=== PATIENT | male | born 1955 | race Two or more races ===

== ENCOUNTER → 2016-07-06 | Outpatient (CLI) | payer OTHER ==
[~2016-07-06] MED LIST: ALBU18HF INH; ALBU6.7H INH; AMLO10TA2 PO; ASPI-496 PO; ASPI-515 PO; ATOR40TA PO; ATOR40TA78 PO; CEFD300C2 PO; CLAR500T4; DILT120T4 PO; DOXY-168 PO; DOXY100T PO; ENAL20TA68 PO; EPIN1AMP INJ; FLUT15.88 NAS; GADOBUTROL 10 MMOL/10 ML PFS ONE; GUAI-103 PO; IMMU10VI; LABE200T3 PO; LISI5TAB PO; METF500T27 PO; METO25TA91; MOME13HF INH; MOME17SP NAS; MONT10TA6 PO; MONT10TA9 PO; PANT40TA3 PO; PANT40TA5 PO; PRED10TA PO; RANO500T2 PO; RIVA20TA PO; ROSU20TA PO; SOTA80TA18 PO; SPIR1TAB PO
== END | disposition home or self-care (01) ==
LOC: RAD 07:04
PROVIDERS: ATTEND Family Medicine
DX: G44.89 Other headache syndrome (principal)
CPT/HCPCS: 70553; A9585

== ENCOUNTER → 2016-07-07 | Outpatient (CLI) | payer OTHER ==
[~2016-07-07] MED LIST changes: -GADOBUTROL 10 MMOL/10 ML PFS ONE
== END | disposition home or self-care (01) ==
LOC: CVU 07:56
PROVIDERS: ATTEND Family Medicine
DX: I07.1 Rheumatic tricuspid insufficiency (principal); I37.1 Nonrheumatic pulmonary valve insufficiency; I34.0 Nonrheumatic mitral (valve) insufficiency; I10 Essential (primary) hypertension; E11.9 Type 2 diabetes mellitus without complications
CPT/HCPCS: 93225; 93226; 93306

== ENCOUNTER 2016-12-19 01:33 | Inpatient (IN) | payer OTHER ==
[~2016-12-19] VITALS: Ht 185.4 cm; Wt 116.3 kg
[~2016-12-19 01:33] MED LIST changes: -CEFD300C2 PO; +CEFD300C37 PO; -DOXY-168 PO; +DOXY100T10 PO
[2016-12-19] MEDS ORDERED: ALBUTEROL/IPRATROPIUM 2.5MG/0.5MG, 3 ML ONE (02:18)
[2016-12-19] MEDS ORDERED: SODIUM CHLORIDE FLUSH 10ML SYR IVF ONE (02:30)
[2016-12-19] MEDS ORDERED: ALBUTEROL/IPRATROPIUM 2.5MG/0.5MG, 3 ML NPPB ONE (02:30)
[2016-12-19 03:03] LABS: ASPARTATE AMINO TRANSFERASE 14 U/L (15-37); BLOOD UREA NITROGEN 20 mg/dL (7-18)
[2016-12-19 03:10] LABS: IS PT STATUS REG ER OR PRE ER? YES
[2016-12-19 03:16] LABS: HEMATOCRIT 43.5 % (39.2-51.8); HEMOGLOBIN 14.7 g/dL (13.7-18.0); WHITE BLOOD COUNT 7.1 x10^3/uL (3.4-10)
[2016-12-19] MEDS ORDERED: SODIUM CHLORIDE 0.9% 1,000ML IVBOLUS ONE (05:00)
[2016-12-19] MEDS ORDERED: OMNIPAQUE 350 MG/ML, 100ML BOTTLE ONE (05:21)
[2016-12-19] MEDS ORDERED: ALBUTEROL SULFATE 2.5 MG/3 ML NPPB ONE (05:30)
[2016-12-19] MEDS ORDERED: ALBUTEROL SULFATE 2.5 MG/3 ML ONE ×3 (06:02→14:08)
[2016-12-19] MEDS ORDERED: SITA100T PO (06:41)
[2016-12-19] MEDS ORDERED: hydrALAzine 20 MG/ML, 1ML IVPush PRN (09:00)
[2016-12-19] MEDS: DILTIAZEM 120 MG TABLET PO SCH ×2 (09:00→21:45)
[2016-12-19] MEDS: MONTELUKAST 10 MG TABLET PO SCH (09:00)
[2016-12-19] MEDS: methylPREDNISolone SOD SUCC 40 MG/ML IV SCH ×3 (09:00→20:55)
[2016-12-19] MEDS: AZITHROMYCIN 500 MG in SODIUM CHLORIDE 0.9% 250 ML IV SCH (09:00)
[2016-12-19] MEDS ORDERED: morphine SULFATE 10 MG/ML, 1ML IVPush PRN (09:00)
[2016-12-19] MEDS ORDERED: ACETAMINOPHEN 325 MG TABLET PO PRN (09:00)
[2016-12-19] MEDS ORDERED: ONDANSETRON 2MG/ML, 2ML IVPush PRN (09:00)
[2016-12-19] MEDS: PANTOPROZOLE 40MG TABLET PO SCH (09:00)
[2016-12-19] MEDS ORDERED: ENOXAPARIN 40 MG/0.4 ML SQ SCH (09:00)
[2016-12-19] MEDS ORDERED: TEMAZEPAM 15 MG CAPSULE PO PRN (09:00)
[2016-12-19] MEDS: SOTALOL 80MG TABLET PO SCH ×2 (09:00→21:44)
[2016-12-19] MEDS ORDERED: PANTOPROZOLE 40MG TABLET PO SCH (09:00)
[2016-12-19] MEDS: SPIRONOLACTONE 25 MG TABLET PO SCH (09:00)
[2016-12-19] MEDS: RIVAROXABAN 20 MG TABLET PO SCH (09:00)
[2016-12-19] MEDS: INSULIN DETEMIR 100 UNITS/ML, PEN SQ-INSULIN SCH (09:00)
[2016-12-19] MEDS ORDERED: SPIRONOLACT/HCTZ 25/25MG TABLET PO SCH (09:00)
[2016-12-19] MEDS: LISINOPRIL 5 MG TABLET PO SCH (09:00)
[2016-12-19] MEDS: HYDROCHLOROTHIAZIDE 25 MG TABLET PO SCH (09:00)
[2016-12-19] MEDS: RANOLAZINE 500 MG TAB.ER.12H PO SCH ×2 (09:00→21:45)
[2016-12-19] MEDS ORDERED: GUAIFENESIN/DM 200-20MG, 10ML UDC PO PRN (09:00)
[2016-12-19] MEDS ORDERED: ENOXAPARIN 40 MG/0.4 ML ONE (10:33)
[2016-12-19] MEDS ORDERED: methylPREDNISolone SOD SUCC 40 MG/ML ONE (10:33)
[2016-12-19] MEDS: INSULIN ASPART 100 UNITS/ML, PEN SQ-INSULIN SCH ×3 (11:00→20:54)
[2016-12-19] MEDS ORDERED: INSULIN REGULAR 100 UNITS/ML, 3ML VIAL ONE (12:09)
[2016-12-19] MEDS: ALBUTEROL SULFATE 2.5 MG/3 ML NPPB SCH ×2 (14:10→20:00)
[2016-12-19 15:24] VITALS: BP 122/65
[2016-12-19] MEDS: HYDROcodone/APAP 5/325 TABLET PO PRN ×2 (15:43→20:54)
[2016-12-19 18:59] VITALS: BP 115/63
[2016-12-19] MEDS: ATORVASTATIN 40 MG TABLET PO SCH (20:54)
[2016-12-19] MEDS: ASPIRIN 81 MG TABLET EC PO SCH (20:54)
[2016-12-20 00:51] VITALS: BP 123/63
[2016-12-20] MEDS: methylPREDNISolone SOD SUCC 40 MG/ML IV SCH ×4 (02:21→22:32)
[2016-12-20] MEDS: HYDROcodone/APAP 5/325 TABLET PO PRN ×3 (06:14→12:51)
[2016-12-20 06:19] LABS: BLOOD UREA NITROGEN 23 mg/dL (7-18)
[2016-12-20] MEDS: ALBUTEROL SULFATE 2.5 MG/3 ML NPPB SCH ×4 (06:30→19:43)
[2016-12-20 08:32] VITALS: BP 105/62
[2016-12-20] MEDS: SPIRONOLACTONE 25 MG TABLET PO SCH (08:37)
[2016-12-20] MEDS: LISINOPRIL 5 MG TABLET PO SCH (08:37)
[2016-12-20] MEDS: DILTIAZEM 120 MG TABLET PO SCH ×2 (08:37→22:29)
[2016-12-20] MEDS: SOTALOL 80MG TABLET PO SCH ×2 (08:37→22:29)
[2016-12-20] MEDS: RANOLAZINE 500 MG TAB.ER.12H PO SCH ×2 (08:38→22:29)
[2016-12-20] MEDS: PANTOPROZOLE 40MG TABLET PO SCH (08:38)
[2016-12-20] MEDS: MONTELUKAST 10 MG TABLET PO SCH (08:38)
[2016-12-20] MEDS: RIVAROXABAN 20 MG TABLET PO SCH (08:38)
[2016-12-20] MEDS: INSULIN ASPART 100 UNITS/ML, PEN SQ-INSULIN SCH ×4 (08:39→22:03)
[2016-12-20] MEDS: HYDROCHLOROTHIAZIDE 25 MG TABLET PO SCH (09:58)
[2016-12-20] MEDS: INSULIN DETEMIR 100 UNITS/ML, PEN SQ-INSULIN SCH (09:59)
[2016-12-20] MEDS: AZITHROMYCIN 500 MG in SODIUM CHLORIDE 0.9% 250 ML IV SCH (09:59)
[2016-12-20 15:04] VITALS: BP 113/77
[2016-12-20 19:14] VITALS: BP 112/63
[2016-12-20 21:57] VITALS: BP 119/70
[2016-12-20] MEDS: ATORVASTATIN 40 MG TABLET PO SCH (22:29)
[2016-12-20] MEDS: ASPIRIN 81 MG TABLET EC PO SCH (22:29)
[2016-12-21 02:00] VITALS: BP 99/54
[2016-12-21] MEDS: HYDROcodone/APAP 5/325 TABLET PO PRN (03:54)
[2016-12-21] MEDS: methylPREDNISolone SOD SUCC 40 MG/ML IV SCH ×2 (04:56→11:00)
[2016-12-21] MEDS: ALBUTEROL SULFATE 2.5 MG/3 ML NPPB SCH ×2 (07:00→11:00)
[2016-12-21 08:44] VITALS: BP 133/75
[2016-12-21] MEDS: INSULIN ASPART 100 UNITS/ML, PEN SQ-INSULIN SCH ×2 (08:46→12:17)
[2016-12-21] MEDS: RIVAROXABAN 20 MG TABLET PO SCH (08:46)
[2016-12-21] MEDS: MONTELUKAST 10 MG TABLET PO SCH (08:46)
[2016-12-21] MEDS: INSULIN DETEMIR 100 UNITS/ML, PEN SQ-INSULIN SCH (08:46)
[2016-12-21] MEDS: PANTOPROZOLE 40MG TABLET PO SCH (08:46)
[2016-12-21] MEDS: RANOLAZINE 500 MG TAB.ER.12H PO SCH (08:46)
[2016-12-21] MEDS: LISINOPRIL 5 MG TABLET PO SCH (08:47)
[2016-12-21] MEDS: DILTIAZEM 120 MG TABLET PO SCH (08:47)
[2016-12-21] MEDS: SPIRONOLACTONE 25 MG TABLET PO SCH (08:47)
[2016-12-21] MEDS ORDERED: PRED10TA PO (09:35)
[2016-12-21] MEDS ORDERED: ALBU18HF INH (09:35)
[2016-12-21] MEDS ORDERED: ALBU2.5V NPPB (09:35)
[2016-12-21] MEDS ORDERED: MOME13HF INH ×2 (09:37→10:50)
[2016-12-21] MEDS: AZITHROMYCIN 500 MG in SODIUM CHLORIDE 0.9% 250 ML IV SCH (09:41)
[2016-12-21] MEDS: HYDROCHLOROTHIAZIDE 25 MG TABLET PO SCH (09:44)
[2016-12-21] MEDS: SOTALOL 80MG TABLET PO SCH (09:47)
[2016-12-21] MEDS ORDERED: AZIT500T5 PO (10:48)
[2016-12-21] MEDS ORDERED: TRAM50TA2 PO (10:50)
[2016-12-21] MEDS ORDERED: ALBUTEROL SULFATE 2.5 MG/3 ML NPPB PRN (15:00)
== END 2016-12-21 13:35 | disposition home or self-care (01) | DRG 202 ==
LOC: ED 03:12 → EDIP 06:14 → 5SO 15:14 → DCLOUNGE 12-21 13:18
PROVIDERS: ADMIT Internal Medicine; ATTEND Internal Medicine
DX: J45.41 Moderate persistent asthma with (acute) exacerbation (principal); D68.69 Other thrombophilia; I50.32 Chronic diastolic (congestive) heart failure; I11.0 Hypertensive heart disease with heart failure; E11.9 Type 2 diabetes mellitus without complications; E78.5 Hyperlipidemia, unspecified; I25.10 Atherosclerotic heart disease of native coronary artery without angina pectoris; I25.2 Old myocardial infarction; I48.0 Paroxysmal atrial fibrillation; J20.8 Acute bronchitis due to other specified organisms; K21.9 Gastro-esophageal reflux disease without esophagitis; Z79.01 Long term (current) use of anticoagulants; Z80.6 Family history of leukemia; Z80.7 Family history of other malignant neoplasms of lymphoid, hematopoietic and related tissues; Z82.49 Family history of ischemic heart disease and other diseases of the circulatory system; Z95.5 Presence of coronary angioplasty implant and graft
CPT/HCPCS: 36415; 71010; 71275; 80048; 80053; 82962; 83036; 83880; 84443; 84484; 85025; 93005; 94640; 96360; 96372; J0456; J1650; J1815; J2405; J7613; J7620; Q9967; J2920; J7030; J7050; J7512

== ENCOUNTER 2017-09-13 06:07 | Inpatient (IN) | payer OTHER ==
[~2017-09-13] VITALS: Ht 185.4 cm; Wt 109.3 kg
[~2017-09-13 06:07] MED LIST changes: +ALBU2.5V NPPB; +APIX5TAB PO; +AZIT500T5 PO; +LEVO500T8 PO; +LOSA50TA6 PO; +METO25TA35 PO; +SITA100T PO; +TRAM50TA2 PO
[2017-09-13] MEDS ORDERED: NITROGLYCERIN SINGLE TAB 0.4 MG SL PRN (07:00)
[2017-09-13] MEDS ORDERED: NITROGLYCERIN SINGLE TAB 0.4 MG SL ONE (07:00)
[2017-09-13] MEDS ORDERED: ASPIRIN 81 MG TABLET CHEW ONE (07:00)
[2017-09-13] MEDS ORDERED: SODIUM CHLORIDE FLUSH 10ML SYR IVF ONE (07:00)
[2017-09-13] MEDS ORDERED: ASPIRIN 81 MG TABLET CHEW PO ONE (07:00)
[2017-09-13 07:03] LABS: MEAN CORPUSCULAR HEMOGLOBIN 23.3 pg (27.5-34.5); MEAN CORPUSCULAR HGB CONC 32.5 g/dL (33.2-36.2); MEAN CORPUSCULAR VOLUME 71.8 fL (81-97); PLATELET COUNT 346 x10^3/uL (130-400); RED BLOOD COUNT 5.66 x10^6/uL (4.38-5.82)
[2017-09-13 07:04] LABS: BASOPHILS # (AUTO) 0.01 x10^3/uL (0-0.1); BASOPHILS % (AUTO) 0 % (0-1); EOSINOPHILS # (AUTO) 0.17 x10^3/uL (0-0.4); EOSINOPHILS % (AUTO) 2 % (1-7); LYMPHOCYTES # (AUTO) 0.63 x10^3/uL (1-3.4); LYMPHOCYTES % (AUTO) 8 % (22-44); MD NO; MEAN PLATELET VOLUME 7.3 fL (7.4-10.4); MONOCYTES # (AUTO) 0.67 x10^3/uL (0.2-0.8); MONOCYTES % (AUTO) 8 % (2-9); NEUTROPHILS # (AUTO) 6.82 x10^3/uL (1.8-6.8); NEUTROPHILS % (AUTO) 82 % (42-75)
[2017-09-13 07:14] LABS: ANION GAP 8 mmol/L (5-15); CALCIUM 8.4 mg/dL (8.5-10.1); CHLORIDE 106 mmol/L (98-107); CREATININE 1.11 mg/dL (0.7-1.3)
[2017-09-13 07:15] LABS: ALBUMIN 3.4 g/dL (3.4-5.0)
[2017-09-13 07:18] LABS: TROPONIN I < 0.015 ng/mL (0.000-0.045)
[2017-09-13] MEDS ORDERED: NITROGLYCERIN OINT 2%, 1GM TP ONE ×2 (08:23→08:30)
[2017-09-13 09:25] VITALS: BP 136/80
[2017-09-13] MEDS ORDERED: ONDANSETRON ODT 4 MG PO PRN (10:00)
[2017-09-13] MEDS ORDERED: ENALAPRILAT 1.25 MG/ML, 2ML IVPush PRN (10:00)
[2017-09-13] MEDS ORDERED: morphine SULFATE 10 MG/ML, 1ML IVPush PRN (10:00)
[2017-09-13] MEDS ORDERED: NITROGLYCERIN 0.4 MG BOTTLE (25 TABS) SL PRN ×2 (10:00)
[2017-09-13] MEDS ORDERED: ONDANSETRON 2MG/ML, 2ML IVPush PRN (10:00)
[2017-09-13] MEDS ORDERED: NITROGLYCERIN 0.4 MG/SPRAY SL PRN (10:00)
[2017-09-13] MEDS ORDERED: DOCUSATE 100 MG CAPSULE PO PRN (10:00)
[2017-09-13] MEDS ORDERED: BUDE10.2 INH (10:01)
[2017-09-13] MEDS ORDERED: ALBUTEROL SULFATE 2.5 MG/3 ML HHN PRN (10:30)
[2017-09-13 10:44] VITALS: BP 102/66
[2017-09-13] MEDS: INSULIN LISPRO 100 UNITS/ML, PEN SQ-INSULIN SCH ×3 (11:00→19:50)
[2017-09-13 13:13] LABS: TROPONIN I < 0.015 ng/mL (0.000-0.045)
[2017-09-13 14:00] VITALS: BP 108/64
[2017-09-13] MEDS ORDERED: ALBUTEROL SULFATE 2.5 MG/3 ML NPPB PRN (15:00)
[2017-09-13] MEDS ORDERED: OMNIPAQUE 350 MG/ML, 100ML BOTTLE ONE (15:31)
[2017-09-13 19:20] LABS: TROPONIN I < 0.015 ng/mL (0.000-0.045)
[2017-09-13] MEDS: ACETAMINOPHEN 325 MG TABLET PO PRN (19:47)
[2017-09-13] MEDS: APIXABAN 5 MG TABLET PO SCH (19:47)
[2017-09-13] MEDS: METOPROLOL TARTRATE 25 MG TABLET PO SCH (19:47)
[2017-09-13 19:56] VITALS: BP 108/69
[2017-09-13] MEDS ORDERED: MONTELUKAST 10 MG TABLET PO SCH (21:00)
[2017-09-14 01:46] VITALS: BP 115/66
[2017-09-14 05:13] LABS: CHLORIDE 106 mmol/L (98-107)
[2017-09-14 05:20] LABS: BASOPHILS # (AUTO) 0.04 x10^3/uL (0-0.1); BASOPHILS % (AUTO) 1 % (0-1); EOSINOPHILS # (AUTO) 0.31 x10^3/uL (0-0.4); EOSINOPHILS % (AUTO) 5 % (1-7); LYMPHOCYTES # (AUTO) 0.99 x10^3/uL (1-3.4); LYMPHOCYTES % (AUTO) 17 % (22-44); MD NO; MEAN CORPUSCULAR HEMOGLOBIN 23.7 pg (27.5-34.5); MEAN CORPUSCULAR VOLUME 71.9 fL (81-97); MEAN PLATELET VOLUME 6.9 fL (7.4-10.4); MONOCYTES % (AUTO) 14 % (2-9); NEUTROPHILS # (AUTO) 3.82 x10^3/uL (1.8-6.8); NEUTROPHILS % (AUTO) 64 % (42-75); PLATELET COUNT 322 x10^3/uL (130-400); RED BLOOD COUNT 5.47 x10^6/uL (4.38-5.82)
[2017-09-14 05:21] LABS: ALANINE AMINOTRANSFERASE 31 U/L (12-78); ALBUMIN 3.2 g/dL (3.4-5.0); ALKALINE PHOSPHATASE 85 U/L (45-117); ANION GAP 3 mmol/L (5-15); CALCIUM 8.1 mg/dL (8.5-10.1); CHOL/HDL RATIO 5.5; CHOLESTEROL, TOTAL 131 mg/dL (140-239); CREATININE 1.05 mg/dL (0.7-1.3); HDL CHOL % 18 % (26-37); HDL CHOLESTEROL (DIRECT) 24 mg/dL (40-60); LDL CHOLESTEROL,CALCULATED 75 mg/dL (54-169); LDL/HDL RATIO 3.1 (0.5-3.0); TOTAL PROTEIN 6.7 g/dL (6.4-8.2); TRIGLYCERIDES 161 mg/dL (50-200); VLDL CHOLESTEROL 32 mg/dL (0-25)
[2017-09-14 05:33] VITALS: BP 121/71
[2017-09-14] MEDS ORDERED: ASPIRIN 325 MG TABLET EC PO SCH (06:00)
[2017-09-14 06:30] VITALS: BP 113/69
[2017-09-14 06:42] LABS: OCCULT BLOOD NEGATIVE (NEGATIVE)
[2017-09-14] MEDS: INSULIN LISPRO 100 UNITS/ML, PEN SQ-INSULIN SCH ×3 (08:25→17:15)
[2017-09-14] MEDS: METOPROLOL TARTRATE 25 MG TABLET PO SCH (08:25)
[2017-09-14] MEDS: APIXABAN 5 MG TABLET PO SCH (08:25)
[2017-09-14] MEDS: ACETAMINOPHEN 325 MG TABLET PO PRN (08:26)
[2017-09-14] MEDS ORDERED: LOSARTAN 50MG TABLET PO SCH (09:00)
[2017-09-14] MEDS ORDERED: PANTOPROZOLE 40MG TABLET PO SCH ×2 (09:00→21:00)
[2017-09-14] MEDS ORDERED: SPIRONOLACT/HCTZ 25/25MG TABLET PO SCH (09:00)
[2017-09-14] MEDS ORDERED: MONTELUKAST 10 MG TABLET PO SCH (09:00)
[2017-09-14] MEDS ORDERED: AMINOPHYLLINE 25 MG/ML, 10ML ONE (09:18)
[2017-09-14 10:45] VITALS: BP 117/74
[2017-09-14] MEDS ORDERED: ASCORBIC ACID 500 MG TABLET PO SCH (13:00)
[2017-09-14] MEDS: FERROUS SULFATE 325 MG TABLET PO SCH ×2 (13:37→17:00)
[2017-09-14 14:16] VITALS: BP 116/73
[2017-09-14] MEDS ORDERED: NITR0.4T SL (15:30)
[2017-09-14] MEDS ORDERED: METH750T2 PO (15:30)
[2017-09-14] MEDS ORDERED: ACET325T14 PO (15:30)
[2017-09-14] MEDS ORDERED: METHOCARBAMOL 750 MG TABLET PO PRN (15:30)
[2017-09-14] MEDS ORDERED: ASPI-515 PO (15:30)
[2017-09-14] MEDS ORDERED: ASCO500T6 PO (15:30)
[2017-09-14] MEDS ORDERED: CALC200T24 PO (15:30)
[2017-09-14] MEDS ORDERED: CALCIUM CARBONATE 500 MG TAB.CHEW PO PRN (15:30)
[2017-09-14] MEDS ORDERED: FERR-51 PO (15:30)
[2017-09-14] MEDS ORDERED: PANT40TA3 PO (15:30)
[2017-09-14 19:23] LABS: HEMOGLOBIN A1C 7.6 % (4.2-6.3)
[2017-09-15] MEDS ORDERED: ASPIRIN 325 MG TABLET EC PO SCH (06:00)
== END 2017-09-14 18:18 | disposition home or self-care (01) | DRG 311 ==
LOC: ED 08:11 → EDIP 08:12 → ED 08:25 → 5SO 09:31
PROVIDERS: ADMIT Hospitalist; ATTEND Hospitalist
DX: I24.8 Other forms of acute ischemic heart disease (principal); D68.59 Other primary thrombophilia; I50.32 Chronic diastolic (congestive) heart failure; D80.3 Selective deficiency of immunoglobulin G [IgG] subclasses; E11.9 Type 2 diabetes mellitus without complications; E78.5 Hyperlipidemia, unspecified; I11.0 Hypertensive heart disease with heart failure; I25.10 Atherosclerotic heart disease of native coronary artery without angina pectoris; I25.2 Old myocardial infarction; I48.0 Paroxysmal atrial fibrillation; J45.909 Unspecified asthma, uncomplicated; K21.9 Gastro-esophageal reflux disease without esophagitis; Z79.01 Long term (current) use of anticoagulants; Z79.4 Long term (current) use of insulin; Z79.82 Long term (current) use of aspirin; Z80.6 Family history of leukemia; Z82.49 Family history of ischemic heart disease and other diseases of the circulatory system; Z95.5 Presence of coronary angioplasty implant and graft; Z88.8 Allergy status to other drugs, medicaments and biological substances
CPT/HCPCS: 36415; 71045; 71275; 78452; 80048; 80053; 80061; 82040; 82272; 82728; 82962; 83036; 83540; 83550; 84466; 84484; 85025; 93005; 93017; 99285; Q9967; A9502; C9898; J0280; J1815

== ENCOUNTER 2017-11-14 05:37 | Observation (INO) | payer OTHER ==
[~2017-11-14] VITALS: Ht 185.4 cm; Wt 107.3 kg
[~2017-11-14 05:37] MED LIST changes: +ACET325T14 PO; +ASCO500T6 PO; +BUDE10.2 INH; +CALC200T24 PO; +FERR-51 PO; -LABE200T3 PO; +LABE200T6 PO; +METH750T2 PO; +NITR0.4T SL
[2017-11-14 06:18] LABS: BASOPHILS # (AUTO) 0.03 x10^3/uL (0-0.1); BASOPHILS % (AUTO) 0 % (0-1); EOSINOPHILS # (AUTO) 0.16 x10^3/uL (0-0.4); EOSINOPHILS % (AUTO) 2 % (1-7); LYMPHOCYTES # (AUTO) 0.89 x10^3/uL (1-3.4); LYMPHOCYTES % (AUTO) 13 % (22-44); MD NO; MEAN CORPUSCULAR HEMOGLOBIN 25.6 pg (27.5-34.5); MEAN CORPUSCULAR HGB CONC 33.3 g/dL (33.2-36.2); MEAN CORPUSCULAR VOLUME 76.9 fL (81-97); MEAN PLATELET VOLUME 6.8 fL (7.4-10.4); MONOCYTES # (AUTO) 0.56 x10^3/uL (0.2-0.8); MONOCYTES % (AUTO) 8 % (2-9); NEUTROPHILS # (AUTO) 5.35 x10^3/uL (1.8-6.8); NEUTROPHILS % (AUTO) 77 % (42-75); PLATELET COUNT 327 x10^3/uL (130-400); RED BLOOD COUNT 5.44 x10^6/uL (4.38-5.82); RED CELL DISTRIBUTION WIDTH 19.7 % (9.4-14.8)
[2017-11-14 06:30] LABS: ALANINE AMINOTRANSFERASE 40 U/L (12-78); ALBUMIN 3.5 g/dL (3.4-5.0); ANION GAP 8 mmol/L (5-15); CALCIUM 8.7 mg/dL (8.5-10.1); CHLORIDE 109 mmol/L (98-107); CREATININE 1.03 mg/dL (0.7-1.3)
[2017-11-14 06:32] LABS: ALKALINE PHOSPHATASE 79 U/L (45-117); BILIRUBIN,TOTAL 0.5 mg/dL (0.2-1.0); TOTAL PROTEIN 6.8 g/dL (6.4-8.2)
[2017-11-14 06:34] LABS: SALICYLATE LEVEL < 1.7 mg/dL (2.8-20.0)
[2017-11-14 06:35] LABS: ACETAMINOPHEN < 2 mcg/mL (10-30)
[2017-11-14 08:53] LABS: AMPHETAMINE SCREEN, URINE Negative (Negative); BARBITURATE SCREEN, URINE Negative (Negative); BENZODIAZEPINE SCREEN, URINE Negative (Negative); CANNABINOID SCREEN, URINE Negative (Negative); COCAINE SCREEN, URINE Negative (Negative); METHADONE SCREEN, URINE Negative (Negative); OPIATE SCREEN, URINE Negative (Negative)
[2017-11-14 13:29] VITALS: BP 153/82
[2017-11-14 14:50] VITALS: BP 153/82
[2017-11-14] MEDS ORDERED: ACETAMINOPHEN 325 MG TABLET PO PRN ×2 (16:00)
[2017-11-14] MEDS ORDERED: CALCIUM CARBONATE 500 MG TAB.CHEW PO PRN (16:30)
[2017-11-14] MEDS ORDERED: ALBUTEROL SULFATE 2.5 MG/3 ML NPPB PRN (16:30)
[2017-11-14] MEDS ORDERED: FERROUS SULFATE 325 MG TABLET PO SCH (17:00)
[2017-11-14] MEDS ORDERED: METOPROLOL TARTRATE 25 MG TABLET PO SCH (21:00)
[2017-11-14] MEDS ORDERED: MONTELUKAST 10 MG TABLET PO SCH (21:00)
[2017-11-14] MEDS ORDERED: APIXABAN 5 MG TABLET PO SCH (21:00)
[2017-11-14] MEDS ORDERED: PANTOPROZOLE 40MG TABLET PO SCH (21:00)
[2017-11-15] MEDS ORDERED: LOSARTAN 50MG TABLET PO SCH (09:00)
[2017-11-15] MEDS ORDERED: ASPIRIN 81 MG TABLET EC PO SCH (09:00)
[2017-11-15] MEDS ORDERED: FLUTICASONE/VILANTEROL 200-25MCG/INH INH SCH (09:00)
[2017-11-15] MEDS ORDERED: SPIRONOLACT/HCTZ 25/25MG TABLET PO SCH (09:00)
[2017-11-15] MEDS ORDERED: SITAGLIPTIN 50MG TABLET PO SCH (09:00)
[2017-11-15] MEDS ORDERED: ASCORBIC ACID 500 MG TABLET PO SCH (09:00)
== END 2017-11-14 19:38 ==
LOC: ED 07:08 → EDIP 12:10 → 2N 13:24
PROVIDERS: ADMIT Hospitalist; ATTEND Hospitalist
DX: R45.851 Suicidal ideations (principal); F33.2 Major depressive disorder, recurrent severe without psychotic features; J45.909 Unspecified asthma, uncomplicated; I48.0 Paroxysmal atrial fibrillation; I25.2 Old myocardial infarction; I25.10 Atherosclerotic heart disease of native coronary artery without angina pectoris; I10 Essential (primary) hypertension; E78.5 Hyperlipidemia, unspecified; E66.01 Morbid (severe) obesity due to excess calories; E11.9 Type 2 diabetes mellitus without complications; Z79.84 Long term (current) use of oral hypoglycemic drugs; Z95.5 Presence of coronary angioplasty implant and graft
CPT/HCPCS: 36415; 80053; 80307; 80329; 85025; 99285; G0378; G0480